=== PATIENT | male | born 1960 | race Caucasian/White ===

== ENCOUNTER → 2023-11-03 08:21 | Outpatient (CLI) | payer OTHER, SELFPAY ==
[2023-11-03 19:05] LABS: BUN Creatinine Ratio 23.5 (6-22); Blood Urea Nitrogen 20 mg/dL (9-20); Calcium 9.4 mg/dL (8.4-10.2); Carbon Dioxide 23 mmol/L (22-32); Chloride 108 mmol/L (98-107); Cholesterol 168 mg/dL (140-199); Estimated Glomerular Filt Rate > 60 mL/min (>60); Glucose 105 mg/dL (80-110); HDL Cholesterol 47 mg/dL (40-60); HEMOLYSIS 22 (0-50); LDL Cholesterol Calculated 105 mg/dL (<100); Potassium 4.3 mmol/L (3.4-5.1); Sodium 139 mmol/L (137-145); Triglycerides 79 mg/dL (35-150)
[2023-11-03 19:08] LABS: Add Manual Diff / Slide Review NO; Basophils Absolute Auto 100 /uL (0-100); Basophils Percent Auto 1.2 % (0-2); Eosinophils Absolute Auto 200 /uL (0-450); Hematocrit 40.8 % (41-53); Hemoglobin 14.4 g/dL (13.5-17.5); Lymphocytes Absolute Auto 1300 /uL (1100-4500); Lymphocytes Percent Auto 26.1 % (25-40); Mean Corpuscular HGB Conc 35.2 % (30-36); Mean Corpuscular Hemoglobin 33.1 PG (26-34); Mean Corpuscular Volume 94.1 fL (80-100); Monocytes Absolute Auto 500 /uL (0-900); Monocytes Percent Auto 10.1 % (3-14); Neutrophils Absolute Auto 2800 /uL (1500-7000); Neutrophils Percent Auto 57.6 % (50-75); Platelet Count 215 X10^3/uL (150-400); Red Blood Cell Count 4.34 X10^6/uL (4.5-5.9); Red Cell Distribution Width 13.3 % (11.6-14.8); White Blood Cell Count 4.8 X10^3/uL (4.5-11.0)
== END ==
PROVIDERS: PCP Family Medicine; Visit Provider Family Medicine
DX: Z13.1 Encounter for screening for diabetes mellitus (principal); Z13.220 Encounter for screening for lipoid disorders; Z12.5 Encounter for screening for malignant neoplasm of prostate; Z13.6 Encounter for screening for cardiovascular disorders
CPT/HCPCS: 80048; 80061; 84153; 85025

== ENCOUNTER 2024-01-30 12:40 | Day surgery (SDC) | payer BC, SELFPAY ==
--- NOTE | 2024-01-30 | PATH_ITS ---
[facility] Accession Number: [id number] No. of containers..01 Tissue . 01 Material submitted: . colon - DESCENDING COLON POLYP . 01 Diagnosis: DESCENDING COLON, POLYPECTOMY: Hyperplastic polyp. [facility] 02/01/2024 1425 Local . 01 Electronically signed: . Xu Valentino MD, Pathologist NPI- [id number] . 01 Gross description: . Received in formalin with two patient identifiers and descending colon polyp, is a single mckeon soft tissue fragment, 0.5 cm in greatest dimension. Submitted in A1. ([id number]) /MRV 01/31/2024 1049 Local . 01 Pathologist provided ICD-10: Z12.11, Z86.010 . 01 CPT . 280977 Specimen Comment: A courtesy copy of this report has been sent to [phone] Performed at: [address] [facility] [address], [place], [place] [id number] MD Ja Prather MD Phone: [phone]
[2024-01-30] MEDS: LACTATED RINGERS 1,000 ML 42 ML IV (13:00)
[2024-01-30 13:12] VITALS: BP 145/90; PULSE 71; RESP 16; TEMP 36.2; O2SAT 94
--- NOTE | 2024-01-30 13:52 | P.HP_ITS ---
History of Present Illness History of Present Illness Date Patient Seen: 01/30/24 Time Patient Seen: 13:53 Chief complaint: Colonoscopy Narrative: 63-year-old man personal history of colonic polyps here for screening colonoscopy. Last colonoscopy 2018. No family history of colon cancer. No abdominal concerns. [facility] Social History Smoking Status: Never smoker alcohol intake: current Meds Home Medications and Allergies Home Medications Medication Instructions Recorded Confirmed Type No Known Home Medications 01/30/24 01/30/24 History Allergies Allergy/AdvReac Type Severity Reaction Status Date / Time Sulfa (Sulfonamide AdvReac Mild Vomiting Verified 01/30/24 13:00 Antibiotics) Exam Vital Signs (past 8 hours): - 01/30/24 13:12 Temperature 97.2 F L Pulse Rate 71 Respiratory Rate 16 Blood Pressure 145/90 H Pulse Oximetry 94 Oxygen Delivery Method Room Air Oxygen Delivery Method Room Air Narrative Exam Narrative: General adult man alert oriented no acute distress Chest nonlabored respiration Extremities warm well perfused Assessment & Plan Assessment & Plan narrative: The patient requires colorectal screening and colonoscopy is recommended. Technical details were discussed. Risks, benefits, alternatives explained. Risks including but not limited to myocardial infarction, aspiration, bleeding, pain, missed lesion, incomplete examination, need for further radiographic studies, intestinal injury, and need for major abdominal surgery were discussed. All questions were answered to their satisfaction, and they are in agreement with this plan. Time-Based Coding :: [TOTAL MINUTES] spent with patient and on the chart (including review of chart, obtaining history, exam, reviewing outside data, placing orders, documenting exam and treatment plan, and counseling patient) on [DATE].
--- NOTE | 2024-01-30 14:01 | P.OP.COLON_ITS ---
Operative Date/Time/Diagnoses Date of procedure: 01/30/24 Time of procedure: 14:01 Pre-op diagnosis: Personal history of colonic polyps Procedure & Clinicians Study performed: Screening colonoscopy and polypectomy Same procedure as scheduled: Yes Indications: Screening Surgeon: Catracho Woods Procedure Notes Procedure in detail: The history and physical was performed/updated and the patient is ASA class is 2. The procedure was discussed in detail with the patient. Potential risks complications including infection, bleeding, missed diagnosis, perforation, need for surgery, and were explained. Their questions were answered and informed consent was obtained. Patient was brought to the procedure room and placed standard monitoring equipment. The patient's vital signs were monitored continuously throughout the entire procedure. Prior to starting time-out was performed. The patient was placed in the left lateral recumbent position. Procedural sedation was administered by anesthesia. Examination began with a thorough inspection of the perianal area there was no evidence of fissures, fistulae, external hemorrhoids or cutaneous malignancy. The colonoscopy scope was then placed into the anal canal and was advanced to the cecum, which was identified by the ileocecal valve, the appendiceal orifice and the confluence of the taenia. The scope was then slowly withdrawn examining colon thoroughly in all directions, irrigating it of any residual stool. The scope was retroflexed within the rectum The patient tolerated the procedure well. They will be discharged once criteria are met. The prep was of good/excellent quality. The withdrawl time was 7 minutes. FINDINGS * Descending colon 3 mm polyp removed with biopsy forceps * Mild diverticulosis of sigmoid colon Specimen(s): other (Descending colon polyp) Impression: Mild diverticulosis Colonic polyp x1 Post-procedure Recommendations: High fiber diet Plan for aftercare: Follow-up is dependent on pathology findings Disposition: same day surgery
[2024-01-30 14:25] VITALS: BP 104/69; PULSE 62; RESP 15; TEMP 36.8; O2SAT 96
[2024-01-30 14:30] VITALS: BP 113/84; PULSE 67; RESP 17; TEMP 36.7; O2SAT 96
[2024-01-30 14:40] VITALS: BP 119/74; PULSE 70; RESP 15; TEMP 36.7; O2SAT 99
== END 2024-01-30 14:42 | disposition home or self-care (01) ==
PROVIDERS: PCP Family Medicine; Referring Provider Surgery; Visit Provider Surgery
PROC: 0DJD8ZZ Inspection of Lower Intestinal Tract, Via Natural or Artificial Opening Endoscopic (ICD-10-PCS; CPT 45378; principal; 2024-01-30 13:45)
DX: Z12.11 Encounter for screening for malignant neoplasm of colon (principal); Z86.010 Personal history of colon polyps; K57.30 Diverticulosis of large intestine without perforation or abscess without bleeding; K63.5 Polyp of colon
CPT/HCPCS: 45380; J2704

== ENCOUNTER → 2025-04-02 09:52 | Outpatient (CLI) | payer BC, SELFPAY ==
[2025-04-02 19:21] LABS: Add Manual Diff / Slide Review NO; Hematocrit 43.5 % (41-53); Hemoglobin 15.5 g/dL (13.5-17.5); Lymphocytes Absolute Auto 1300 /uL (1100-4500); Mean Corpuscular HGB Conc 35.6 % (30-36); Mean Corpuscular Hemoglobin 33.4 PG (26-34); Mean Corpuscular Volume 93.8 fL (80-100); Platelet Count 215 X10^3/uL (150-400)
[2025-04-02 19:23] LABS: Blood Urea Nitrogen 18 mg/dL (9-20); Carbon Dioxide 29 mmol/L (22-32); Chloride 103 mmol/L (98-107); Estimated Glomerular Filt Rate > 60 mL/min (>60); HEMOLYSIS 17 (0-50)
[2025-04-02 19:30] LABS: Calcium 9.8 mg/dL (8.4-10.2); Cholesterol 173 mg/dL (140-199); Glucose 99 mg/dL (70-99); HDL Cholesterol 53 mg/dL (40-60); Potassium 4.5 mmol/L (3.4-5.1); Sodium 140 mmol/L (137-145); Triglycerides 97 mg/dL (35-150)
[2025-04-02 19:51] LABS: TSH w/ Reflex to FT4 1.16 uIU/mL (0.47-4.68)
== END ==
PROVIDERS: PCP Family Medicine; Visit Provider Family Medicine
DX: Z12.5 Encounter for screening for malignant neoplasm of prostate (principal); D64.9 Anemia, unspecified; Z13.1 Encounter for screening for diabetes mellitus; Z13.6 Encounter for screening for cardiovascular disorders; I10 Essential (primary) hypertension
CPT/HCPCS: 80048; 80061; 84443; 85025; G0103